=== PATIENT | female | born 1960 | race Asian ===

== ENCOUNTER 2020-06-05 13:02 | Emergency (ER) | payer OTHER ==
[~2020-06-05] VITALS: Ht 160 cm; Wt 65.5 kg
[2020-06-05] MEDS ORDERED: ONDANSETRON ODT 4 MG ONE (13:27)
[2020-06-05] MEDS ORDERED: ONDANSETRON ODT 4 MG PO ONE (13:30)
[2020-06-05] MEDS ORDERED: KETOROLAC 30 MG/1 ML ONE (13:57)
[2020-06-05] MEDS ORDERED: SODIUM CHLORIDE 0.9% 1,000ML IVBOLUS ONE (14:00)
[2020-06-05] MEDS ORDERED: KETOROLAC 30 MG/1 ML IVPush ONE (14:00)
[2020-06-05 14:06] LABS: BASOPHILS % (AUTO) 1 % (0-1); EOSINOPHILS % (AUTO) 0 % (1-7); LYMPHOCYTES % (AUTO) 18 % (22-44); MEAN CORPUSCULAR HEMOGLOBIN 30.8 pg (27.0-34.8); MEAN CORPUSCULAR HGB CONC 32.9 g/dL (32.4-35.8); MEAN PLATELET VOLUME 9.6 fL (7.4-10.4); MONOCYTES % (AUTO) 7 % (2-9); NEUTROPHILS % (AUTO) 74 % (42-75); PLATELET COUNT 133 x10^3/uL (130-400); RED BLOOD COUNT 4.62 x10^6/uL (3.82-5.3); RED CELL DISTRIBUTION WIDTH 13.1 % (9.6-15.2)
[2020-06-05 14:08] LABS: MD NO
[2020-06-05 14:12] LABS: ALANINE AMINOTRANSFERASE 29 U/L (12-78); ALBUMIN 3.7 g/dL (3.4-5.0); ANION GAP 4 mmol/L (5-15); CALCIUM 8.7 mg/dL (8.5-10.1); CHLORIDE 102 mmol/L (98-107); CREATININE 1.01 mg/dL (0.55-1.02)
[2020-06-05 14:14] LABS: ALKALINE PHOSPHATASE 46 U/L (45-117); BILIRUBIN,TOTAL 0.5 mg/dL (0.2-1.0); TOTAL PROTEIN 8.4 g/dL (6.4-8.2)
[2020-06-05 15:25] VITALS: BP 146/87
== END 2020-06-05 15:31 | disposition home or self-care (01) ==
LOC: ED 15:00
DX: U07.1 COVID-19 (principal); J15.9 Unspecified bacterial pneumonia; R94.31 Abnormal electrocardiogram [ECG] [EKG]; R11.2 Nausea with vomiting, unspecified
CPT/HCPCS: 36415; 71045; 80053; 83605; 84145; 85025; 87040; 87635; 93005; 96361; 96374; 99285; J1885; J7030; Q0162